=== PATIENT | male | born 1980 ===

== ENCOUNTER 2021-08-10 17:52 | Emergency (ER) | payer SELFPAY ==
[~2021-08-10] VITALS: Ht 182.9 cm; Wt 81.8 kg
[2021-08-10 18:06] VITALS: BP 121/88
--- NOTE | 2021-08-10 18:30 | NUR ---
Assumed care of patient from FLORENCIO Milner. Patient sitting quietly in room, denies any needs at this time.
--- NOTE | 2021-08-10 19:05 | NUR ---
Patient not in room. Security paged and is checking cameras to see where patient could have eloped too.
--- NOTE | 2021-08-10 19:05 | NUR ---
made aware of patients elopement. Nurse to call [facility].
[2021-08-10] MEDS ORDERED: NO HOME MEDS (19:12)
== END 2021-08-10 20:04 | disposition left against medical advice (07) ==
LOC: EDBD 17:54 → ER 17:54
DX: Z53.21 Procedure and treatment not carried out due to patient leaving prior to being seen by health care provider (principal)